=== PATIENT | female | born 1960 | race Native Hawaiian/Other Pacific Islander ===

== ENCOUNTER → 2016-09-12 | Outpatient (CLI) | payer OTHER ==
[~2016-09-12] MED LIST: ASPI81 PO; GLYBPOW PO; LISI30TA44 PO; METF-324 PO; NAPR500 PO; SYNT75TA PO; TYLE3 PO; VITA400C28 PO
[2016-09-12 10:03] LABS: AUTOMATED NEUTROPHIL # 3.2 TH/MM3 (1.8-7.7); BASOPHIL % 0.3 % (0.0-2.0); EOSINOPHIL # 0.1 TH/MM3 (0-0.4); EOSINOPHIL % 2.5 % (0.0-4.0); HEMATOCRIT 40.8 % (35.0-46.0); HEMO FLAGS DIFF FINAL; LYMPH % 35.2 % (9.0-44.0); MEAN CELL VOLUME 94.3 FL (80.0-100.0); MEAN CORPUSCULAR HEMOGLOBIN 31.6 PG (27.0-34.0); MEAN CORPUSCULAR HGB CONC 33.6 % (32.0-36.0); MONO % 6.4 % (0.0-8.0); NEUT % 55.6 % (16.0-70.0); PLATELET COUNT 392 TH/MM3 (150-450); RED BLOOD COUNT 4.33 MIL/MM3 (4.00-5.30); RED CELL DISTRIBUTION WIDTH 13.1 % (11.6-17.2); WHITE BLOOD COUNT 5.8 TH/MM3 (4.0-11.0)
[2016-09-12 10:29] LABS: ANION GAP 8 MEQ/L (5-15); AST (GOT) 8 U/L (15-37); BICARBONATE 30.1 MEQ/L (21.0-32.0); BLOOD UREA NITROGEN 12 MG/DL (7-18); CHLORIDE 105 MEQ/L (98-107); GLOMERULAR FILTRATION RATE 75 ML/MIN (>89); GLUCOSE,FASTING 144 MG/DL (74-99); POTASSIUM 4.3 MEQ/L (3.5-5.1); SODIUM (NA) 143 MEQ/L (136-145)
[2016-09-12 10:54] LABS: ALKALINE PHOSPHATASE 63 U/L (45-117); ALT (GPT) 28 U/L (10-53); HDL CHOLESTEROL 73.6 MG/DL (40.0-60.0); LDL CHOLESTEROL 99 MG/DL (0-99); TOTAL BILIRUBIN ADULT 0.5 MG/DL (0.2-1.0)
[2016-09-12 16:09] LABS: HEMOGLOBIN A1b 1.3 %; HEMOGLOBIN Ao 82.9 %; HEMOGLOBIN F 1.2 %; HEMOGLOBIN LA1C 2.4 %
== END ==
LOC: CLAB 09:29
PROVIDERS: ATTEND Family Medicine
DX: D51.9 Vitamin B12 deficiency anemia, unspecified (principal); E03.9 Hypothyroidism, unspecified; E78.2 Mixed hyperlipidemia; E11.9 Type 2 diabetes mellitus without complications
CPT/HCPCS: 36415; 80050; 80053; 80061; 82607; 82746; 83036; 83540; 84443; 85025

== ENCOUNTER → 2017-02-06 | Outpatient (CLI) | payer OTHER ==
[2017-02-06 08:14] LABS: CREATININE RANDOM URINE 41 MG/DL (27-300)
[2017-02-06 08:24] LABS: MICRO ALBUMIN RANDOM URINE RAW LESS THAN 5.0 MG/L (0.0-30.0); MICROALBUMIN/CREAT RATIO RAND 12 MG/G CRE (0-30)
[2017-02-06 08:53] LABS: HDL CHOLESTEROL 67.7 MG/DL (40.0-60.0); LDL CHOLESTEROL DIRECT 89 MG/DL (0-99)
[2017-02-06 08:56] LABS: ALT (GPT) 23 U/L (10-53); AST (GOT) 14 U/L (15-37); LDL CHOLESTEROL 83 MG/DL (0-99)
[2017-02-06 16:38] LABS: HEMOGLOBIN A1a 1.2 %; HEMOGLOBIN A1b 1.2 %; HEMOGLOBIN Ao 81.6 %; HEMOGLOBIN F 1.3 %; HEMOGLOBIN LA1C 2.4 %; HEMOGLOBIN P3 4.2 %
== END ==
LOC: CLAB 07:24
PROVIDERS: ATTEND Family Medicine
DX: E78.2 Mixed hyperlipidemia (principal); E11.65 Type 2 diabetes mellitus with hyperglycemia
CPT/HCPCS: 36415; 80061; 82043; 83036; 83721; 84450; 84460

== ENCOUNTER → 2017-06-19 | Outpatient (CLI) | payer OTHER ==
[2017-06-19 09:31] LABS: AUTOMATED NEUTROPHIL # 3.7 TH/MM3 (1.8-7.7); BASOPHIL % 0.3 % (0.0-2.0); EOSINOPHIL # 0.2 TH/MM3 (0-0.4); EOSINOPHIL % 2.6 % (0.0-4.0); HEMATOCRIT 39.4 % (35.0-46.0); HEMO FLAGS DIFF FINAL; LYMPH % 26.9 % (9.0-44.0); LYMPHOCYTE # 1.6 TH/MM3 (1.0-4.8); MEAN CELL VOLUME 90.2 FL (80.0-100.0); MEAN CORPUSCULAR HEMOGLOBIN 30.2 PG (27.0-34.0); MEAN CORPUSCULAR HGB CONC 33.5 % (32.0-36.0); MONO % 7.9 % (0.0-8.0); NEUT % 62.3 % (16.0-70.0); PLATELET COUNT 304 TH/MM3 (150-450); RED BLOOD COUNT 4.37 MIL/MM3 (4.00-5.30); RED CELL DISTRIBUTION WIDTH 12.5 % (11.6-17.2); WHITE BLOOD COUNT 5.9 TH/MM3 (4.0-11.0)
[2017-06-19 09:54] LABS: ANION GAP 6 MEQ/L (5-15); AST (GOT) 13 U/L (15-37); BICARBONATE 29.2 MEQ/L (21.0-32.0); BLOOD UREA NITROGEN 15 MG/DL (7-18); CHLORIDE 104 MEQ/L (98-107); GLOMERULAR FILTRATION RATE 121 ML/MIN (>89); GLUCOSE,FASTING 195 MG/DL (74-99); POTASSIUM 4.2 MEQ/L (3.5-5.1); SODIUM (NA) 139 MEQ/L (136-145)
[2017-06-19 10:20] LABS: ALKALINE PHOSPHATASE 81 U/L (45-117); ALT (GPT) 32 U/L (10-53); HDL CHOLESTEROL 77.1 MG/DL (40.0-60.0); LDL CHOLESTEROL 47 MG/DL (0-99); TOTAL BILIRUBIN ADULT 0.3 MG/DL (0.2-1.0)
[2017-06-19 14:05] LABS: HEMOGLOBIN A1a 1.3 %; HEMOGLOBIN A1b 1.1 %; HEMOGLOBIN Ao 80.5 %; HEMOGLOBIN F 1.6 %; HEMOGLOBIN LA1C 2.8 %; HEMOGLOBIN P3 4.4 %
== END ==
LOC: CLAB 08:37
PROVIDERS: ATTEND Family Medicine
DX: E78.2 Mixed hyperlipidemia (principal); E11.9 Type 2 diabetes mellitus without complications; D51.9 Vitamin B12 deficiency anemia, unspecified; E03.9 Hypothyroidism, unspecified
CPT/HCPCS: 36415; 80053; 80061; 82607; 82746; 83036; 84443; 85025